=== PATIENT | male | born 1975 | race Caucasian/White ===

== ENCOUNTER 2017-01-04 22:32 | Observation (INO) | payer OTHER ==
--- NOTE | 2017-01-04 22:53 | ED Physician Documentation ---
Abdominal Pain - HISTORIAN Historian: patient - HPI Chief Complaint: Abdominal Pain Onset: hours Duration: constant Timing: still present Context: denies: out of country travel, bad food Severity: severe Quality: sharp, stabbing Associated Symptoms: nausea. denies: fever, chills, vomiting Exacerbated by: movements, walking Relieved by: remaining still Further Comments: yes (Patient has a history of pancreatitis, has had 4-5 episodes, last occurance was several weeks ago. Due to alcohol. Started to have pain again this AM. Patient has a history of EtOHism, has been through treatment before last year, maintained cebritiety for 8 months. Drinks vodka about pint a day. Last drink was 21:30. Was recetnly at [facility] for 4 days for treatmetn of pancratitis and withdrawal. Discharged 2 weeks ago. Started to drink again yesterday.) - ROS CONST: no problems GI/: denies: constipation, black stools, bloody urine, bloody stools, dark urine CVS/RESP: none - SOCIAL HX Smoking History: less than 1 pack/day (10 cigarettes a day) Alcohol Use: heavy Drug Use: none - FAMILY HX Family History: none - PAST HX Past History: other (diabetes type 2) Other History: none Surgeries/Procedures: appendectomy Immunizations: referred to PCP Home Medications: Ambulatory Orders Medication Instructions Recorded Insulin Aspart [Novolog Flexpen] See Protocol TID 01/05/17 Insulin Detemir [Levemir Flex-Pen] 34 unit SQ HS 01/05/17 Allergies/Adverse Reactions: Allergies Allergy/AdvReac Type Severity Reaction Status Date / Time No Known Allergies Allergy Verified 01/04/17 22:51 - VITAL SIGNS Vital Signs: Vital Signs Temp Pulse Resp BP Pulse Ox 98.1 F 86 16 126/85 96 01/04/17 22:35 01/04/17 22:35 01/04/17 22:35 01/04/17 22:35 01/04/17 22:35 - REVIEWED ASSESSMENTS Nursing Assessment Reviewed: Yes Vitals Reviewed: Yes Progress - Progress Progress: 23:54 Patient is still rating pain 7/10, did not get much improvement from Dilaudid 0001 Patient states that the Dilaudid has not helped muh, Will give a GI cocktail. Amylase is normal will get CT scan of ABD and Pelvic. ED Results Lab/Radiology - Lab Results Lab Results: Lab Results 01/04/17 01/04/17 23:04 23:04 WBC 6.50 K/ul K/ul (4.00-12.00) RBC 5.07 M/ul M/ul (3.90-5.20) Hgb 16.7 g/dL g/dL (12.0-18.0) Hct 49.1 % % (37.0-53.0) MCV 96.7 fl fl (80.0-100.0) MCH 33.0 pg pg (28.0-34.0) MCHC 34.1 g/dL g/dL (30.0-36.0) RDW 13.0 % % (11.3-14.3) Plt Count 148 K/mm3 K/mm3 (130-400) Neut % (Auto) 57.1 % % (39.0-79.0) Lymph % (Auto) 31.2 % % (16.0-50.0) [place] % (Auto) 4.8 % % (0.0-11.0) Eos % (Auto) 2.1 % % (0.0-6.8) Baso % (Auto) 1.0 (0.0-1.5) Neut # (Auto) 3.7 # k/uL # k/uL (1.4-7.7) Lymph # (Auto) 2.0 # k/uL # k/uL (0.6-4.0) [place] # (Auto) 0.3 # k/uL # k/uL (0.0-0.9) Eos # (Auto) 0.1 # k/uL # k/uL (0.0-0.6) Baso # (Auto) 0.1 # k/uL # k/uL (0.0-0.5) Reactive Lymphs % 3.7 % % (0.0-5.0) Reactive Lymphs # 0.2 # k/uL # k/uL (0.0-0.8) Sodium 140 mmol/L mmol/L (136-145) Potassium 4.0 mmol/L mmol/L (3.5-5.0) Chloride 95 mmol/L L mmol/L (98-110) Carbon Dioxide 34 mmol/L H mmol/L (20-32) BUN 11 mg/dL mg/dL (10-26) Creatinine 0.7 mg/dL mg/dL (0.4-1.5) Estimated Creat Clear 136 Est GFR ( Amer) > 60 (60 - ) Est GFR (Non-Af Amer) > 60 (60 - ) Glucose 259 mg/dL H mg/dL (70-99) Calcium 9.7 mg/dL mg/dL (8.5-10.5) Total Bilirubin 0.4 mg/dL mg/dL (0.2-1.2) AST 186 U/L H U/L (0-41) ALT 221 U/L H U/L (0-45) Alkaline Phosphatase 113 U/L U/L (46-116) Total Protein 8.2 g/dL g/dL (6.0-8.5) Albumin 5.1 g/dL g/dL (3.0-5.5) Amylase 40 U/L U/L (20-104) Ethyl Alcohol 414.0 MG/DL H MG/DL (<10.0) - Radiology Radiology Impressions: Computed tomography of the abdomen and pelvis with contrast History: Left upper quadrant pain Findings: Transverse abdomen and pelvis sections are obtained after 90 mL intravenous omnipaque 300. Marked pancreatic atrophy, pancreatic calcifications, and pancreatic ductal dilatation are observed. Marked hepatic steatosis observed. Gallbladder diameter and wall thickness are normal. The kidneys, adrenals, and spleen are unremarkable. Bowel loops exhibit normal caliber and wall thickness. The appendix is not identified. Great vessels and mesenteric structures are unremarkable. Mild gastric rugal fold thickening is present. Pelvic sections reveal unremarkable urinary bladder, prostate, and seminal vesicles. Pelvic bowel loops are within normal limits. Impression: 1. Chronic calcific pancreatitis, pancreatic atrophy, and marked hepatic steatosis suggest sequela of chronic alcohol abuse. 2. Nonvisualization of the appendix. 3. Mild gastric rugal fold thickening may represent gastritis. - Orders Orders: ED Orders Category Date Time Status Place IV Lock 1T Care 01/04/17 22:[address] ABD & PELVIS W/ CON Stat Exams 01/04/17 Taken AMYLASE Routine Lab 01/04/17 23:04 Completed CBC/PLATELET/DIFF Routine Lab 01/04/17 23:04 Completed CMP Routine Lab 01/04/17 23:04 Completed ETHANOL MEDICAL USE ONLY Routine Lab 01/04/17 23:04 Completed URINALYSIS Routine Lab 01/04/17 Ordered 0.9 % Sodium Chloride [Normal Saline] 1,000 ml Med 01/04/17 23:30 Ordered IV .Q1H Chem Sticks Med 01/04/17 23:08 Discontinued 1 each MC NOW ONE HYDROmorphone HCL/PF [Dilaudid] Med 01/04/17 22:59 Discontinued 1 mg IVP NOW ONE HYDROmorphone HCL/PF [Dilaudid] Med 01/04/17 23:37 Discontinued 1 mg IVP NOW ONE Ketorolac Tromethamine [Toradol] Med 01/05/17 00:36 Discontinued 30 mg .ROUTE .STK-MED ONE Ketorolac Tromethamine [Toradol] Med 01/05/17 00:36 Discontinued 30 mg IVP NOW ONE Lidocaine 2%Visc 15ml [Xylocaine] Med 01/04/17 23:50 Discontinued 600 mg .ROUTE .STK-MED ONE Mag Hydrox/Al Hydrox/Simeth [Mylanta] Med 01/04/17 23:50 Discontinued 30 ml PO .STK-MED ONE Mag Hydrox/Al Hydrox/Simeth [Mylanta] 30 ml Med 01/04/17 23:48 Discontinued Lidocaine 2%Visc 15ml [Xylocaine] 20 mg PHENobarb/HYOSCY/ATROPINE/SCOP [] 10 ml PO NOW Thiamine HCl 100 mg Med 01/05/17 05:00 Ordered Mvi, Adult No.1 with Vit K [M.v.i. Adult] 10 ml Folic Acid [Folvite] 5 mg 0.9 % Sodium Chloride [Normal Saline] 1,000 ml IV Q8 Abdominal Pain Physical Exam - Physical Exam General Appearance: alert, moderate distress NECK: normal inspection, thyroid normal, supple. No: lymphadenopathy RESPIRATORY: no resp distress, chest non-tender, breath sounds normal. No: wheezes, rales, rhonchi CVS: reg rate & rhythm, heart sounds normal, equal pulses, no murmur, no gallop ABDOMEN: soft, no organomegaly, normal bowel sounds, no abdominal bruit, no distension, tenderness (LUQ), decreased BS, guarding BACK: CVA tenderness (L) SKIN: warm/dry, normal color EXTREMITIES: non-tender, normal range of motion NEURO: oriented X3, CN's nml as tested, motor nml, sensation nml, mood/affect nml Vital Signs: Vital Signs Temp Pulse Resp BP Pulse Ox 98.1 F 86 16 126/85 96 01/04/17 22:35 01/04/17 22:35 01/04/17 22:35 01/04/17 22:35 01/04/17 22:35 Discharge Clincal Impression: Gastritis Qualifiers: Gastritis type: alcoholic Chronicity: acute Gastritis bleeding: without bleeding Qualified Code(s): K29.20 - Alcoholic gastritis without bleeding Alcohol dependence Qualifiers: Substance use status: with intoxication Complication of substance-induced condition: uncomplicated Qualified Code(s): F10.220 - Alcohol dependence with intoxication, uncomplicated Home Medications: Ambulatory Orders Insulin Aspart [Novolog Flexpen] See Protocol TID 01/05/17 Insulin Detemir [Levemir Flex-Pen] 34 unit SQ HS 01/05/17 Condition: Stable Disposition: 09 ADMITTED INPATIENT Decision to Admit: [id number] Date of Decison to Admit: 01/05/17 Decision Time: 01:47
[2017-01-04] MEDS ORDERED: HYDROmorphone HCL/PF 1 MG/ML DISP.SYRIN IVP ONE ×2 (22:59→23:37)
[2017-01-04] MEDS ORDERED: 0.9 % SODIUM CHLORIDE 1,000 ML IV ONE (23:05)
[2017-01-04 23:10] LABS: EOSINOPHILS % 2.1 % (0.0-6.8); MEAN CORPUSCULAR VOLUME 96.7 fl (80.0-100.0); MONOCYTES % 4.8 % (0.0-11.0); NEUTROPHILS # 3.7 # k/uL (1.4-7.7)
[2017-01-04 23:23] LABS: eGFR (African) > 60; eGFR (Non-African) > 60
[2017-01-04] MEDS ORDERED: 0.9 % SODIUM CHLORIDE 1,000 ML IV SCH (23:30)
[2017-01-04] MEDS ORDERED: MAG HYDROX/AL HYDROX/SIMETH 30 ML, Lidocaine 2%Visc 15ml 20 MG, PHENobarb/HYOSCY/ATROPI... PO ONE ×3 (23:48)
[2017-01-04] MEDS ORDERED: Lidocaine 2%Visc 15ml 20 MG/ML UDC ONE (23:50)
[2017-01-04] MEDS ORDERED: MAG HYDROX/AL HYDROX/SIMETH 30 ML UDC PO ONE (23:50)
[2017-01-05] MEDS ORDERED: KETOROLAC TROMETHAMINE 30 MG/1ML VIAL ONE (00:36)
[2017-01-05] MEDS ORDERED: KETOROLAC TROMETHAMINE 30 MG/1ML VIAL IVP ONE (00:36)
[2017-01-05] MEDS ORDERED: MVI, ADULT NO.1 WITH VIT K 10 ML VIAL IV ONE (01:09)
[2017-01-05] MEDS ORDERED: THIAMINE HCL 100 MG/ML 2ML VIAL ONE (01:09)
[2017-01-05] MEDS ORDERED: 0.9 % SODIUM CHLORIDE 1,000 ML IV ONE (01:09)
[2017-01-05] MEDS ORDERED: FOLIC ACID 5 MG/1 ML ONE (01:09)
[2017-01-05] MEDS ORDERED: PANTOPRAZOLE SODIUM INJ. 40 MG VIAL ONE ×2 (01:15→15:40)
[2017-01-05] MEDS ORDERED: 0.9 % SODIUM CHLORIDE 50 ML IV ONE ×2 (01:16→15:41)
[2017-01-05] MEDS: PANTOPRAZOLE SODIUM 40 MG in 0.9 % SODIUM CHLORIDE 50 ML IV SCH ×3 (01:20→20:16)
[2017-01-05] MEDS ORDERED: 0.9 % SODIUM CHLORIDE 1,000 ML IV SCH (02:00)
[2017-01-05] MEDS ORDERED: fentaNYL CITRATE/PF 100 MCG/ 2ML AMP ONE ×2 (02:11→09:26)
[2017-01-05] MEDS: fentaNYL CITRATE/PF 100 MCG/ 2ML AMP IVP PRN ×3 (02:17→10:07)
[2017-01-05 02:31] VITALS: BMI 23.0
[2017-01-05] MEDS: INSULIN REGULAR, HUMAN 100 UNIT/ML 3ML VIAL SQ SCH ×5 (03:00→20:13)
[2017-01-05] MEDS: INSULIN DETEMIR 100 UNIT/ML 3ML PEN.INJCTR SQ SCH ×2 (03:01→20:14)
[2017-01-05] MEDS ORDERED: THIAMINE HCL 100 MG, MVI, ADULT NO.1 WITH VIT K 10 ML, FOLIC ACID 5 MG in 0.9 % SODIUM ... IV SCH ×4 (05:00)
[2017-01-05] MEDS ORDERED: SALINE FLUSH 10 ML DISP.SYRIN IVF ONE ×5 (06:00→13:47)
--- NOTE | 2017-01-05 06:17 | Diagnostic Imaging Report ---
Name: TIAN LUQUE ~~ ~~ : 73 ~~ Acc #: [id number]~~ DOS : Jan 05, 2017 12:16:14 AM CDT ~~ Mod: CT\SR ~~ Desc: CT ABD & PELVIS W/ CON 1 of 1 DAE BERMUDEZ~ [address] [address] ~ ~ ~ ~ Report Submission Date: Jan 05, 2017 12:56:21 AM CDT Patient ~ Study Name: TIAN LUQUE ~ Date: Jan 05, 2017 12:16:14 AM CDT ~ Modality Type: CT\SR Gender: M ~ Description: CT ABD & PELVIS W/ CON : 73 ~ Institution: [facility] Physician: DAE BERMUDEZ ~ ~ ~ ~ Computed tomography of the abdomen and pelvis with contrast History: Left upper quadrant pain Findings: Transverse abdomen and pelvis sections are obtained after 90 mL intravenous omnipaque 300. Marked pancreatic atrophy, pancreatic calcifications, and pancreatic ductal dilatation are observed. Marked hepatic steatosis observed. Gallbladder diameter and wall thickness are normal. The kidneys, adrenals, and spleen are unremarkable. Bowel loops exhibit normal caliber and wall thickness. The appendix is not identified. Great vessels and mesenteric structures are unremarkable. Mild gastric rugal fold thickening is present. Pelvic sections reveal unremarkable urinary bladder, prostate, and seminal vesicles. Pelvic bowel loops are within normal limits. Impression: 1. Chronic calcific pancreatitis, pancreatic atrophy, and marked hepatic steatosis suggest sequela of chronic alcohol abuse. 2. Nonvisualization of the appendix. 3. Mild gastric rugal fold thickening may represent gastritis. ~ Electronically signed on Jan 05, 2017 12:56:21 AM CDT by: Og TREJO
[2017-01-05 07:02] LABS: BASOPHILS % 0.6 (0.0-1.5); EOSINOPHILS % 2.6 % (0.0-6.8); MEAN CORPUSCULAR HEMOGLOBIN 34.5 pg (28.0-34.0); MONOCYTES % 4.4 % (0.0-11.0); NEUTROPHILS # 1.7 # k/uL (1.4-7.7)
[2017-01-05 07:04] LABS: APPEARANCE,URINE CLEAR (CLEAR); COLOR,URINE YELLOW (YELLOW); OCCULT BLOOD,URINE TRACE-LYSED (NEGATIVE); UROBILINOGEN URINE 0.2 Eu (0.2-1.0)
[2017-01-05 07:17] LABS: eGFR (African) > 60; eGFR (Non-African) > 60
[2017-01-05] MEDS ORDERED: DEXTROSE 5 % IN WATER 0 ML IV ONE (12:21)
[2017-01-05] MEDS ORDERED: HYDROmorphone HCL/PF 2 MG/ML DISP.SYRIN ONE ×4 (12:29→22:12)
[2017-01-05] MEDS: DEXTROSE 5 %-0.45 % NACL 1,000 ML IV SCH ×2 (12:43→23:55)
--- NOTE | 2017-01-05 12:49 | Inpatient Progress Note ---
Subjective - Required Recertification Statement I anticipate X number of days because-include discharge plan: 1 - Review of Systems Events since last encounter: Patient continues to complain of pain 5-6/10, constant, worse with eating. Has been nauseated with vomiting. No fever or chills noted. No hematemisis noted. Has been shaking slightly. General: Denies: Chills Objective - Exam Vitals and I&O: Vital Signs Temp 97.4 F L 01/05/17 10:00 Pulse 89 01/05/17 10:00 Resp 22 01/05/17 10:00 BP 142/86 01/05/17 10:00 Pulse Ox 99 01/05/17 10:00 Intake & Output 01/04/17 01/05/17 01/05/17 23:59 11:59 23:59 Intake Total 2170 Output Total 500 Balance 1670 Weight 70.76 kg Intake: IV 1250 Right Antecubital 1250 Oral 920 Output: Urine 500 Other: Voiding Method Urinal General: Alert, Oriented to Person, Oriented to Place, Oriented to Time, Cooperative, Moderate distress Neck: Supple Lungs: Clear to auscultation, Normal air movement, Speaks full Sentences. No: Wheezes, Rales, Rhonchi Cardiovascular: Regular rate, Normal S1, Normal S2, No murmurs Abdomen: Normal bowel sounds, Soft, Other (tneder in all 4 quadrants. Not consistent with repeat exam.). No: Distended, Rigid Extremities: No clubbing Skin: Normal, [place] Neurological: Normal speech, Strength Equal Bilat Psych/Mental Status: Mental status NL, Mood NL, Appropriate Affect, Intact Judgment - Results Results: Laboratory Results WBC 3.80 K/ul (4.00-12.00) L 01/05/17 06:40 RBC 4.26 M/ul (3.90-5.20) 01/05/17 06:40 Hgb 14.7 g/dL (12.0-18.0) 01/05/17 06:40 Hct 42.6 % (37.0-53.0) 01/05/17 06:40 MCV 100.0 fl (80.0-100.0) 01/05/17 06:40 MCH 34.5 pg (28.0-34.0) H 01/05/17 06:40 MCHC 34.5 g/dL (30.0-36.0) 01/05/17 06:40 RDW 13.2 % (11.3-14.3) 01/05/17 06:40 Plt Count 116 K/mm3 (130-400) L 01/05/17 06:40 Neut % (Auto) 43.6 % (39.0-79.0) 01/05/17 06:40 Lymph % (Auto) 45.8 % (16.0-50.0) 01/05/17 06:40 [place] % (Auto) 4.4 % (0.0-11.0) 01/05/17 06:40 Eos % (Auto) 2.6 % (0.0-6.8) 01/05/17 06:40 Baso % (Auto) 0.6 (0.0-1.5) 01/05/17 06:40 Neut # (Auto) 1.7 # k/uL (1.4-7.7) 01/05/17 06:40 Lymph # (Auto) 1.8 # k/uL (0.6-4.0) 01/05/17 06:40 [place] # (Auto) 0.2 # k/uL (0.0-0.9) 01/05/17 06:40 Eos # (Auto) 0.1 # k/uL (0.0-0.6) 01/05/17 06:40 Baso # (Auto) 0.0 # k/uL (0.0-0.5) 01/05/17 06:40 Reactive Lymphs % 2.9 % (0.0-5.0) 01/05/17 06:40 Reactive Lymphs # 0.1 # k/uL (0.0-0.8) 01/05/17 06:40 Sodium 136 mmol/L (136-145) 01/05/17 06:40 Potassium 3.9 mmol/L (3.5-5.0) 01/05/17 06:40 Chloride 96 mmol/L (98-110) L 01/05/17 06:40 Carbon Dioxide 31 mmol/L (20-32) 01/05/17 06:40 BUN 10 mg/dL (10-26) 01/05/17 06:40 Creatinine 0.5 mg/dL (0.4-1.5) 01/05/17 06:40 Estimated Creat Clear 192 01/05/17 06:40 Est GFR ( Amer) > 60 (60-) 01/05/17 06:40 Est GFR (Non-Af Amer) > 60 (60-) 01/05/17 06:40 Glucose 186 mg/dL (70-99) H 01/05/17 06:40 Calcium 8.3 mg/dL (8.5-10.5) L 01/05/17 06:40 Total Bilirubin 0.3 mg/dL (0.2-1.2) 01/05/17 06:40 AST 133 U/L (0-41) H 01/05/17 06:40 ALT 177 U/L (0-45) H 01/05/17 06:40 Alkaline Phosphatase 91 U/L (46-116) 01/05/17 06:40 Total Protein 6.9 g/dL (6.0-8.5) 01/05/17 06:40 Albumin 4.2 g/dL (3.0-5.5) 01/05/17 06:40 Amylase 40 U/L (20-104) 01/04/17 23:04 Urine Color Yellow (YELLOW) 01/05/17 01:05 Urine Appearance Clear (CLEAR) 01/05/17 01:05 Urine pH 5.0 (5.0 - 8.0) 01/05/17 01:05 Ur Specific [place] 1.010 (1.010-1.030) 01/05/17 01:05 Urine Protein 2+ mg/dL (NEGATIVE) H 01/05/17 01:05 Urine Ketones Negative mg/dL (NEGATIVE) 01/05/17 01:05 Urine Occult Blood Trace-lysed (NEGATIVE) H 01/05/17 01:05 Urine Nitrite Negative (NEGATIVE) 01/05/17 01:05 Urine Bilirubin Negative (NEGATIVE) 01/05/17 01:05 Urine Urobilinogen 0.2 Eu (0.2-1.0) 01/05/17 01:05 Ur Leukocyte Esterase Negative (NEGATIVE) 01/05/17 01:05 Urine Glucose Negative mg/dL (NEGATIVE) 01/05/17 01:05 Ethyl Alcohol 414.0 MG/DL (<10.0) H 01/04/17 23:04 Assessment/Plan - Assessment/Plan (1) Gastritis Status: Acute Current Visit: Yes Qualifiers: Gastritis type: alcoholic Chronicity: acute Gastritis bleeding: without bleeding Qualified Code(s): K29.20 - Alcoholic gastritis without bleeding Assessment: Will increase protonix to BID. Labs have been normal except for elvated LFT. CT scan appears normal except for chronic pancreatic changes. (2) ETOH abuse Status: Acute Current Visit: No Assessment: Patient states that he started to drink again only about 2 days prior to admission. Has a history of cocaine abuse in the past. Will switch to dilaudid to try to get better pain control. Patient advised that we would need to jose dose soon.
[2017-01-05] MEDS ORDERED: DEXTROSE 5 % IN WATER 100 ML IV.SOLN IV SCH (13:00)
[2017-01-05] MEDS: ONDANSETRON HCL/PF 4 MG/ 2ML VIAL IVP PRN (13:52)
[2017-01-05] MEDS: HYDROmorphone HCL/PF 1 MG/ML DISP.SYRIN IVP PRN ×3 (13:52→22:19)
[2017-01-05] MEDS: LORazepam 1 MG TABLET PO PRN (20:19)
[2017-01-05] MEDS ORDERED: ONDANSETRON HCL 4 MG TAB.RAPDIS ONE (20:24)
[2017-01-06] MEDS: HYDROmorphone HCL/PF 1 MG/ML DISP.SYRIN IVP PRN ×3 (01:54→10:59)
[2017-01-06] MEDS: INSULIN REGULAR, HUMAN 100 UNIT/ML 3ML VIAL SQ SCH ×3 (07:21→15:00)
[2017-01-06 08:15] LABS: eGFR (African) > 60; eGFR (Non-African) > 60
[2017-01-06] MEDS ORDERED: SALINE FLUSH 10 ML DISP.SYRIN IVF ONE ×2 (08:50→09:42)
[2017-01-06] MEDS ORDERED: DEXTROSE 5 % IN WATER 100 ML IV SCH (09:00)
[2017-01-06] MEDS ORDERED: THIAMINE HCL 100 MG TABLET PO SCH (09:00)
[2017-01-06] MEDS ORDERED: 0.9 % SODIUM CHLORIDE 50 ML IV ONE (09:24)
[2017-01-06] MEDS ORDERED: PANTOPRAZOLE SODIUM INJ. 40 MG VIAL ONE (09:24)
[2017-01-06] MEDS: LORazepam 1 MG TABLET PO PRN (09:54)
[2017-01-06] MEDS: ONDANSETRON HCL/PF 4 MG/ 2ML VIAL IVP PRN (10:52)
[2017-01-06] MEDS: DEXTROSE 5 %-0.45 % NACL 1,000 ML IV SCH (10:53)
[2017-01-06] MEDS: PANTOPRAZOLE SODIUM 40 MG in 0.9 % SODIUM CHLORIDE 50 ML IV SCH (11:03)
[2017-01-06] MEDS ORDERED: PROMETHAZINE HCL IV PRN (11:08)
[2017-01-06] MEDS ORDERED: SODIUM CHLORIDE 0.9% IV PRN (11:08)
[2017-01-06] MEDS ORDERED: HYDROmorphone HCL/PF 1 MG/ML DISP.SYRIN IVP PRN (11:08)
--- NOTE | 2017-01-06 11:11 | Inpatient Progress Note ---
Subjective - Required Recertification Statement I anticipate X number of days because-include discharge plan: 1 day - Review of Systems Events since last encounter: Patient continued to complain about a law of epigastric left upper quadrant abdominal pain. Patient states it it does feel it is had pancreatitis before. However patient pancreatic enzymes is been normal. Patient continues to have some nausea with vomiting. Zofran does seem to help some. Patient is having difficulties in maintaining oral fluids.Patient states and continue to have some trimmers related to alcohol withdrawal. Patient is not have any dt Gastrointestinal: Nausea, Vomiting, Abdominal Pain. Denies: Diarrhea, Constipation Objective - Exam Vitals and I&O: Vital Signs Temp 97.4 F L 01/06/17 09:27 Pulse 61 01/06/17 10:00 Resp 20 01/06/17 10:00 BP 136/87 01/06/17 09:27 Pulse Ox 96 01/06/17 09:27 Intake & Output 01/05/17 01/05/17 01/06/17 11:59 23:59 11:59 Intake Total 2170 1600 640 Output Total 500 300 Balance 1670 1600 340 Weight 70.76 kg Intake: IV 1250 1000 Right Antecubital 1250 1000 Oral 920 600 640 Output: Urine 500 Oral Regurgitation 300 Other: Voiding Method Urinal Urinal Urinal # Voids 1,400 General: Alert, Oriented to Person, Oriented to Place, Oriented to Time, Moderate distress Neck: Supple Lungs: Clear to auscultation, Normal air movement. No: Wheezes, Rales, Rhonchi Cardiovascular: Regular rate, Normal S1, Normal S2, No murmurs Abdomen: Soft, Other (tender in the upper quadrants bialterally, patient continues to have some dry heaves at times. ). No: Distended Skin: Normal, [place], Warm, Dry Neurological: Normal gait Psych/Mental Status: Mental status NL, Mood NL, Appropriate Affect - Results Results: Laboratory Results WBC 3.80 K/ul (4.00-12.00) L 01/05/17 06:40 RBC 4.26 M/ul (3.90-5.20) 01/05/17 06:40 Hgb 14.7 g/dL (12.0-18.0) 01/05/17 06:40 Hct 42.6 % (37.0-53.0) 01/05/17 06:40 MCV 100.0 fl (80.0-100.0) 01/05/17 06:40 MCH 34.5 pg (28.0-34.0) H 01/05/17 06:40 MCHC 34.5 g/dL (30.0-36.0) 01/05/17 06:40 RDW 13.2 % (11.3-14.3) 01/05/17 06:40 Plt Count 116 K/mm3 (130-400) L 01/05/17 06:40 Neut % (Auto) 43.6 % (39.0-79.0) 01/05/17 06:40 Lymph % (Auto) 45.8 % (16.0-50.0) 01/05/17 06:40 [place] % (Auto) 4.4 % (0.0-11.0) 01/05/17 06:40 Eos % (Auto) 2.6 % (0.0-6.8) 01/05/17 06:40 Baso % (Auto) 0.6 (0.0-1.5) 01/05/17 06:40 Neut # (Auto) 1.7 # k/uL (1.4-7.7) 01/05/17 06:40 Lymph # (Auto) 1.8 # k/uL (0.6-4.0) 01/05/17 06:40 [place] # (Auto) 0.2 # k/uL (0.0-0.9) 01/05/17 06:40 Eos # (Auto) 0.1 # k/uL (0.0-0.6) 01/05/17 06:40 Baso # (Auto) 0.0 # k/uL (0.0-0.5) 01/05/17 06:40 Reactive Lymphs % 2.9 % (0.0-5.0) 01/05/17 06:40 Reactive Lymphs # 0.1 # k/uL (0.0-0.8) 01/05/17 06:40 Sodium 130 mmol/L (136-145) L 01/06/17 06:15 Potassium 3.5 mmol/L (3.5-5.0) 01/06/17 06:15 Chloride 90 mmol/L (98-110) L 01/06/17 06:15 Carbon Dioxide 28 mmol/L (20-32) 01/06/17 06:15 BUN 6 mg/dL (10-26) L 01/06/17 06:15 Creatinine 0.5 mg/dL (0.4-1.5) 01/06/17 06:15 Estimated Creat Clear 192 01/06/17 06:15 Est GFR ( Amer) > 60 (60-) 01/06/17 06:15 Est GFR (Non-Af Amer) > 60 (60-) 01/06/17 06:15 Glucose 149 mg/dL (70-99) H 01/06/17 06:15 Calcium 9.6 mg/dL (8.5-10.5) 01/06/17 06:15 Total Bilirubin 0.7 mg/dL (0.2-1.2) 01/06/17 06:15 AST 119 U/L (0-41) H 01/06/17 06:15 ALT 185 U/L (0-45) H 01/06/17 06:15 Alkaline Phosphatase 102 U/L (46-116) 01/06/17 06:15 Total Protein 7.8 g/dL (6.0-8.5) 01/06/17 06:15 Albumin 4.7 g/dL (3.0-5.5) 01/06/17 06:15 Amylase 32 U/L (20-104) 01/05/17 06:40 Urine Color Yellow (YELLOW) 01/05/17 01:05 Urine Appearance Clear (CLEAR) 01/05/17 01:05 Urine pH 5.0 (5.0 - 8.0) 01/05/17 01:05 Ur Specific [place] 1.010 (1.010-1.030) 01/05/17 01:05 Urine Protein 2+ mg/dL (NEGATIVE) H 01/05/17 01:05 Urine Ketones Negative mg/dL (NEGATIVE) 01/05/17 01:05 Urine Occult Blood Trace-lysed (NEGATIVE) H 01/05/17 01:05 Urine Nitrite Negative (NEGATIVE) 01/05/17 01:05 Urine Bilirubin Negative (NEGATIVE) 01/05/17 01:05 Urine Urobilinogen 0.2 Eu (0.2-1.0) 01/05/17 01:05 Ur Leukocyte Esterase Negative (NEGATIVE) 01/05/17 01:05 Urine Glucose Negative mg/dL (NEGATIVE) 01/05/17 01:05 Ethyl Alcohol < 10.0 MG/DL (<10.0) 01/06/17 06:15 Assessment/Plan - Assessment/Plan (1) Gastritis Status: Acute Qualifiers: Gastritis type: alcoholic Chronicity: acute Gastritis bleeding: without bleeding Qualified Code(s): K29.20 - Alcoholic gastritis without bleeding (2) ETOH abuse Status: Acute Assessment: stable withdrawal (3) Elevated liver function tests Status: Acute Assessment: improved some
[2017-01-06] MEDS ORDERED: DEXTROSE 5 % AND 0.9 % NACL 1,000 ML IV SCH (12:00)
[2017-01-06] MEDS ORDERED: HYDROmorphone HCL/PF 2 MG/ML DISP.SYRIN ONE (14:59)
[2017-01-06] MEDS ORDERED: HYDROcodone /APAP 5/325 1 EACH TABLET PO PRN (18:12)
[2017-01-06 18:18] VITALS: BP 120/83
[2017-01-06 21:11] LABS: LIPASE 8 U/L (13-60)
--- NOTE | 2017-01-07 12:29 | Discharge Summary ---
Discharge Summary - Discharge Sumary History of Present Illness: Patient has a history of pancreatitis, has had 4-5 episodes of acute on chronic pancreatitis. Last occurance was several weeks ago. Exacerbations were felt to be related to alcohol ingestion. Patient started to have pain again on the AM of admission. Patient has a history of EtOHism, has been through treatment before, last time was about one year ago, maintained cebritiety for 8 months. Drinks vodka about pint a day. Last drink was 21:30 on the day of admission.. Was recently admitted at [facility] for 4 days for treatment of pancratitis and withdrawal. Discharged 2 weeks ago. Started to drink again yesterday. Presented to [facility] for admission but was felt not to be stable enough for admission and advised to be seen in the ED. CAT scan in the ED showed changes of gastritis, chronic pancreatic changes, no evidence of acute pancreatitis. Labs were normal except for elevated blood sugar and liver function tests. Condition at Discharge: Stable Home Medications: Ambulatory Orders Medication Instructions Recorded Insulin Aspart [Novolog Flexpen] See Protocol TID 01/05/17 Insulin Detemir [Levemir Flex-Pen] 34 unit SQ HS 01/05/17 Consultations this Visit: None Procedures this Visit: None Allergies/Adverse Reactions: Allergies Allergy/AdvReac Type Severity Reaction Status Date / Time No Known Allergies Allergy Verified 01/04/17 22:51 Discharge Summary: Patient has CAT scan done in the ED which showed some calcification in the pancreas consistent with chronic panceratitis. There did appear to be some gastric flod swelling consistent with gastritis. Patient was having some nausea and vomiting and was admitted. Patient is diabetic and was continued on his regular long acting insulin and started on a sliding scale. Patient continued to have some LUQ abd pain requiring IV narcotic medication to control and some nausea associated with retching. Nausea was controlled with IV Zofran and phenergan. Patient was started on IV protonix BID. Patient states that he was seen at [facility] for similar symptoms about 10 days prior to admission. Endoscopy was done at that time and found to have some gastritis. On the day of discharge patient pain medication was tapered to half the dose he was getting previously. Nausea improved and patient was started on a clear liquid diet which her tolerated well. Patient did appear to have some mild to moderate withdrawal symptoms of tremors and anxiety managed with Ativan. Liver function tests did improve some during course of hospitalization. Patient decided he wanted to be discharge to [facility] but no beds were available. Patient then wanted to be discharged home. Patient was discharged in stable condition. - Final Diagnosis (1) Gastritis Problems: Improved (2) ETOH abuse Problems: Stable (3) Elevated liver function tests Problems: improved
--- NOTE | 2017-01-07 13:04 | History and Physical Report ---
History of Present Illnes - History of Present Illness Reason for Visit: abd pain, nausea, vomiting, EtHO abuse History of Present Illness: Patient has a history of pancreatitis, has had 4-5 episodes of acute on chronic pancreatitis. Last occurance was several weeks ago. Exacerbations were felt to be related to alcohol ingestion. Patient started to have pain again on the AM of admission. Patient has a history of EtOHism, has been through treatment before, last time was about one year ago, maintained cebritiety for 8 months. Drinks vodka about pint a day. Last drink was 21:30 on the day of admission.. Was recently admitted at [facility] for 4 days for treatment of pancratitis and withdrawal. Discharged 2 weeks ago. Started to drink again yesterday. Presented to [facility] for admission but was felt not to be stable enough for admission and advised to be seen in the ED. CAT scan in the ED showed changes of gastritis, chronic pancreatic changes, no evidence of acute pancreatitis. Labs were normal except for elevated blood sugar and liver function tests. Due to patient being daibetic with uncontrolled abd pain assoicated with nausea and vomiting patient was admitted. - Past Medical History Gastrointestinal: Other (chronic pancreatitis) Hepatobiliary: Other (Has had some alcoholic hepatitis the past). denies: Cirrhosis Psych: Anxiety, Addictions (EtOH dependency) - Past Surgical History Past Surgical History: Appendectomy - Past Family History Mother Family History: None - Past Social History Smoke: <1 pack per day (10 cigarettes daily) Occupation: unemployed Alcohol: Heavy (vodka 1 pint a day or more) Drugs: None Lives: Friends Domestic Violence: Negative - Health Maintenance Health Maintenance: denies: Influenza Vaccine, Pneumococcal Vaccine Influenza Vaccine: No Pneumonia Vaccine: No Resuscitation Status: Resusciation Status Resuscitation Status Full Code - Unable to Obtain History Unable to Obtain: No Review of Systems - Review of Systems Constitutional: negative: Fever, Chills, Weakness Eyes: negative: vision change ENT: negative: Ear Pain, Ear Discharge, Nose Pain, Nose Discharge, Nose Congestion, Mouth Pain, Mouth Swelling, Throat Pain Respiratory: negative: Cough, Shortness of Breath, Hemoptysis, SOB with Excertion Cardiovascular: negative: Chest Pain, Palpitations Gastrointestinal: Nausea, Vomiting, Abdominal Pain. negative: Diarrhea, Constipation, Melena, Hematochezia Genitourinary: negative: Dysuria, Frequency, Incontinence, Hematuria Musculoskeletal: Other (generalized pain) Skin: negative: Rash, Lesions Neurological: negative: Weakness, Numbness, Confusion - Medications/Allergies Allergies/Adverse Reactions: Allergies Allergy/AdvReac Type Severity Reaction Status Date / Time No Known Allergies Allergy Verified 01/04/17 22:51 Home Medications: Home Medications Insulin Aspart [Novolog Flexpen] See Protocol TID 01/05/17 Insulin Detemir [Levemir Flex-Pen] 34 unit SQ HS 01/05/17 Exam - Exam Vital Signs: Vital Signs (72 hours) 01/05/17 01/05/17 01/05/17 01:25 01:30 01:39 Temperature 98.1 F 97.6 F 97.6 F Pulse Rate [ 76 72 72 Left Pulse ox] Respiratory 16 16 16 Rate Blood Pressure 124/63 136/60 136/60 [Left Arm] O2 Sat by Pulse 96 92 92 Oximetry 01/05/17 01/05/17 01/05/17 06:00 10:00 14:00 Temperature 98.1 F 97.4 F L Pulse Rate [ 81 89 89 Left Pulse ox] Respiratory 16 22 22 Rate Blood Pressure 136/72 142/86 [Left Arm] O2 Sat by Pulse 96 99 Oximetry 01/05/17 01/05/17 01/05/17 15:25 18:00 22:00 Temperature 97.0 F L 98.5 F 97.2 F L Pulse Rate [ 99 H 99 H 98 H Left Pulse ox] Respiratory 22 20 16 Rate Blood Pressure 148/85 164/107 147/90 [Left Arm] O2 Sat by Pulse 98 98 98 Oximetry 01/06/17 01/06/17 01/06/17 01:18 06:00 09:27 Temperature 97.6 F 98.3 F 97.4 F L Pulse Rate [ 66 88 59 L Left Pulse ox] Respiratory 18 20 20 Rate Blood Pressure 154/94 148/59 136/87 [Left Arm] O2 Sat by Pulse 98 98 96 Oximetry 01/06/17 01/06/17 01/06/17 10:00 14:00 18:00 Temperature 97.8 F 98.1 F Pulse Rate [ 61 69 65 Left Pulse ox] Respiratory 20 20 20 Rate Blood Pressure 132/93 120/83 [Left Arm] O2 Sat by Pulse 95 96 Oximetry 01/06/17 19:38 Temperature 98.1 F Pulse Rate [ 65 Left Pulse ox] Respiratory 20 Rate Blood Pressure 120/83 [Left Arm] O2 Sat by Pulse 96 Oximetry General: Alert, Oriented to Person, Oriented to Place, Oriented to Time, Cooperative, Moderate distress HEENT: Atraumatic, PERRLA, Mouth Mucous membr. moist/[place], Hearing Grossly Normal. No: Pharyngeal Erythema, Tonsillar Swelling Neck: Normal Range of Motion. No: Rigidity, Lymphadenopathy Carotids: WNL Thyroid: WNL Lungs: Clear to auscultation, Normal air movement, Speaks full Sentences, Respiratory Distress. No: Wheezes, Rales, Rhonchi Cardiovascular: Regular rate, Normal S1, Normal S2, No murmurs. No: Gallops, Rubs Abdomen: Normal bowel sounds, Soft, No hepatospenomegaly, Other (mild diffuse tenderness, more prominent in the LUQ area). No: No masses, Distended Integumentary: Normal, [place], Warm, Dry Extremities: No clubbing, No cyanosis, No edema, Normal pulses Neurological: Normal gait, Normal speech, Strength Equal Bilat, Normal tone, Sensation intact, Cranial nerves 3-12 NL, Reflexes 2+ Psych/Mental Status: Mental status NL, Mood NL, Appropriate Affect, Intact Judgment - Laboratory Results Laboratory Results: Laboratory Results 01/05/17 01/05/17 01/05/17 06:40 06:40 06:40 WBC 3.80 L RBC 4.26 Hgb 14.7 Hct 42.6 MCV 100.0 MCH 34.5 H MCHC 34.5 RDW 13.2 Plt Count 116 L Neut % (Auto) 43.6 Lymph % (Auto) 45.8 [place] % (Auto) 4.4 Eos % (Auto) 2.6 Baso % (Auto) 0.6 Neut # (Auto) 1.7 Lymph # (Auto) 1.8 [place] # (Auto) 0.2 Eos # (Auto) 0.1 Baso # (Auto) 0.0 Reactive Lymphs % 2.9 Reactive Lymphs # 0.1 Sodium 136 Potassium 3.9 Chloride 96 L Carbon Dioxide 31 BUN 10 Creatinine 0.5 Estimated Creat Clear 192 Est GFR ( Amer) > 60 Est GFR (Non-Af Amer) > 60 Glucose 186 H Calcium 8.3 L Total Bilirubin 0.3 AST 133 H ALT 177 H Alkaline Phosphatase 91 Total Protein 6.9 Albumin 4.2 Amylase 32 Lipase Ethyl Alcohol 01/06/17 01/06/17 01/06/17 06:15 06:15 06:15 WBC RBC Hgb Hct MCV MCH MCHC RDW Plt Count Neut % (Auto) Lymph % (Auto) [place] % (Auto) Eos % (Auto) Baso % (Auto) Neut # (Auto) Lymph # (Auto) [place] # (Auto) Eos # (Auto) Baso # (Auto) Reactive Lymphs % Reactive Lymphs # Sodium 130 L Potassium 3.5 Chloride 90 L Carbon Dioxide 28 BUN 6 L Creatinine 0.5 Estimated Creat Clear 192 Est GFR ( Amer) > 60 Est GFR (Non-Af Amer) > 60 Glucose 149 H Calcium 9.6 Total Bilirubin 0.7 AST 119 H ALT 185 H Alkaline Phosphatase 102 Total Protein 7.8 Albumin 4.7 Amylase Lipase 8 L Ethyl Alcohol < 10.0 Assessment/Plan - Assessment/Plan (1) Gastritis Status: Acute Qualifiers: Gastritis type: alcoholic Chronicity: acute Gastritis bleeding: without bleeding Qualified Code(s): K29.20 - Alcoholic gastritis without bleeding Assessment: Will start with Protonix 40mg IV, clear liquids, Zofran for nausea. (2) ETOH abuse Status: Acute Assessment: Monitor for withdrawal symptoms (3) Elevated liver function tests Status: Acute Assessment: Will continue to monitor, probably related to EtOHism VTE Assessment - RISK FACTOR SCORE VTE RISK FACTOR SCORES: AGE 40-60 YEARS - RISK VTE LOW RISK: SCORE OF 1 OR LESS (RISK PROXIMAL DVT 0.4%) NO PROPHYLAXIS NEEDED (Patient ambulatory)
== END 2017-01-06 19:30 | disposition home or self-care (01) ==
LOC: ED 22:32 → SOUTH 01-05 01:05
PROVIDERS: ADMIT Family Medicine; ATTEND Family Medicine
DX: K29.70 Gastritis, unspecified, without bleeding (principal); F10.10 Alcohol abuse, uncomplicated; R94.5 Abnormal results of liver function studies
CPT/HCPCS: 36415; 74177; 80053; 80320; 81002; 82150; 83690; 85025; A9270; G0378; J1170; J1815; J1885; J2405; J3010; J3411; J3490; J7030; J7042; 96361; 96365; 96367; 96372; 96375; 96376; 99223; 99233; 99238; 99284; G0480; J7070; S1016; S5010

== ENCOUNTER 2019-02-08 19:48 | Emergency (ER) | payer SELFPAY ==
--- NOTE | 2019-02-08 19:56 | ED Physician Documentation ---
Upper Respiratory Symptoms - HISTORIAN Historian: patient - HPI Stated Complaint: cough x 16 days no fever Chief Complaint: Cough/ Upper Respiratory Onset: days ago (16) Severity: mild Associated Symptoms: runny nose, sinus drainage, sore throat. denies: fever, chills, earache, sinus pain, hoarseness Worsened by Deep Breath: No Further Comments: yes (Cough and congestion x 16 days. He has taken OTC meds with mild to no relief) - ROS CONST/EYES: denies: weakness, eye redness, eye itching CVS/RESP: denies: chest pain, shortness of breath, palpitations LYMPH: denies: rash GI/: none NEURO/PSYCH: denies: fainting, dizziness, confusion, anxiety - PAST HX Lung Disease: none Immunizations: UTD Allergies/Adverse Reactions: Allergies Allergy/AdvReac Type Severity Reaction Status Date / Time No Known Allergies Allergy Verified 02/08/19 20:17 Home Medications: Ambulatory Orders Medication Instructions Recorded Insulin Aspart [Novolog Flexpen] See Protocol TID 01/05/17 Insulin Detemir (Nf) [Levemir 34 unit SQ HS 01/05/17 Flex-Pen (Nf)] - SOCIAL HX Smoking History: non-smoker Alcohol Use: none Drug Use: none - FAMILY HX Family History: none - VITAL SIGNS Vital Signs: Vital Signs Temp Pulse Resp BP Pulse Ox 97.1 F L 79 18 115/70 99 02/08/19 20:30 02/08/19 20:30 02/08/19 20:30 02/08/19 20:30 02/08/19 20:30 - REVIEWED ASSESSMENTS Nursing Assessment Reviewed: Yes Vitals Reviewed: Yes ED Results Lab/Radiology - Orders Orders: ED Orders Category Date Time Status Azithromycin [Zithromax] Med 02/08/19 20:10 Discontinued 500 mg PO NOW ONE Ipratropium/Albuterol Sulfate [Duoneb] Med 02/08/19 20:10 Discontinued 3 ml NEB NOW ONE predniSONE [Deltasone] Med 02/08/19 20:10 Discontinued 20 mg PO NOW ONE Upper Respiratory Symptoms - EXAM General Appearance: no acute distress, alert EENT: eyes nml inspection, nml ENT inspection, PERRL, ear nml. No: pain over sinuses Neck: normal inspection Respiratory: no resp. distress, breath sounds nml, speaks full sentences, wheezes (RUL ) Abdomen: non-tender CVS: reg rate & rhythm, heart sounds normal, equal pulses Skin: color nml, no rash, warm,dry Extremities: non-tender Neuro/Psych: oriented x3 Discharge Clincal Impression: Bronchitis Referrals: Primary Doctor,No [Primary Care Provider] - 2 Days Comments: 1. Azithromycin 250 mg take 1 by mouth daily x 4 days 2. ProAir 90mcg 2 puffs every 4 hours as needed for cough 3. Prednisone - medrol pack as directed 4. OTC meds as needed as directed for symptoms 5. Increase fluids 6. Follow up with PCP if no improvement in 2-4 days 7. Return to ER for any increased concerns Condition: Stable Disposition: 01 HOME, SELF-CARE Decision to Admit: NO Date of Decison to Admit: 02/08/19 Decision Time: 20:30
[2019-02-08] MEDS: predniSONE 20 MG TABLET PO ONE (20:20)
[2019-02-08] MEDS: AZITHROMYCIN 250 MG TABLET PO ONE (20:20)
[2019-02-08] MEDS: IPRATROPIUM/ALBUTEROL SULFATE 3 ML AMPUL.NEB NEB ONE (20:20)
[2019-02-08 20:40] VITALS: BP 115/70
== END 2019-02-08 20:30 | disposition home or self-care (01) ==
LOC: ED 19:48
DX: J40 Bronchitis, not specified as acute or chronic (principal)
CPT/HCPCS: 94640; 99283; 99284

== ENCOUNTER 2019-02-11 17:20 | Emergency (ER) | payer SELFPAY ==
[2019-02-11] MEDS ORDERED: IPRATROPIUM/ALBUTEROL SULFATE 3 ML AMPUL.NEB NEB ONE (17:45)
[2019-02-11] MEDS ORDERED: BUDESONIDE 0.5MG/2ML AMPUL.NEB NEB ONE (17:45)
[2019-02-11] MEDS ORDERED: methylPREDNISolone SOD SUCC 125 MG/2 ML VIAL ONE (17:45)
--- NOTE | 2019-03-03 10:11 | Diagnostic Imaging Report ---
[facility] [address] [facility] [address] [place], [place]. [address] Report Submission Date: Feb 11, 2019 6:05:59 PM CDT Patient Study Name: TIAN LUQUE Date: Feb 11, 2019 5:51:14 PM CDT Modality Type: DX Gender: M Description: CHEST 2VIEW : 73 Institution: [facility] Physician: [facility] ED Pa and lateral chest Clinical history : Cough and congestion Technique pa and lateral upright Findings: The lung malone are clear. Lung malone show mild hyperinflation I see no hilar or mediastinal mass. There is no pleural effusion or lesion of the bony thorax. Impression: Mild hyperinflation No acute pulmonary disease Electronically signed on Feb 11, 2019 6:05:59 PM CDT by: [place] TREJO
== END 2019-02-11 18:33 | disposition home or self-care (01) ==
LOC: ED 17:20
DX: J06.9 Acute upper respiratory infection, unspecified (principal)
CPT/HCPCS: 71020; 71046; 99282; J2930; J7626